=== PATIENT | female | born 1965 | race Caucasian/White ===

== ENCOUNTER 2018-09-10 11:33 | Day surgery (SDC) | payer BC ==
[~2018-09-10] VITALS: Ht 157.5 cm; Wt 85.1 kg
[~2018-09-10 11:33] MED LIST: ATOR10TA65 PO; FENO200 PO; LISI20TA; OMEP20CA9
[2018-09-10 13:00] VITALS: Ht 157.5 cm; Wt 85.1 kg
[2018-09-10 13:22] VITALS: BP 119/87; PULSE 70; RESP 20
--- NOTE | 2018-09-10 13:33 | PREAC ---
Date/Time of Note Date/Time of Note DATE: 09/10/18 TIME: 13:31 Anesthesia Eval and Record Evaluation Time Pre-Procedure Interview DATE: 09/10/18 TIME: 13:31 Age 53 Sex female NPO: 8 hrs Preoperative diagnosis Abdominal pain Planned procedure EGD Past Medical History Past Medical History: Includes Cardio: HTN, Dyslipidemia Endo: Diabetes GI: GERD, Morbid obesity Surgery & Anesthesia Issues No known issue Meds Anticoagulation: No Beta Carlos within 24 hr: No Reason Beta Carlos not given: Pt. not on B-Carlos Reported Medications Atorvastatin Calcium (Atorvastatin Calcium) 10 Mg Tablet, 10 MG PO QHS, #30 TAB 01/01/16 Fenofibrate* (Fenofibrate*) 200 Mg Cap, 200 MG PO DAILY, CAP 01/01/16 Omeprazole* (Prilosec*) 20 Mg Capsule. 08/19/09 Lisinopril* (Prinivil*) 20 Mg Tablet 08/19/09 Meds reviewed: Yes Allergies Coded Allergies: No Known Allergy (Verified Allergy, Mild, 08/19/09) Allergies Reviewed: Yes Labs/Studies Labs Reviewed: Reviewed by anesthesiologist test: Negative Studies: ECG Pre-procedure Exam Last vitals BP:112/56, P:77, Spo2:100%, T:98,9 Airway: Adequate mouth opening, Adequate thyromental dist Mallampati: Mallampati II Teeth: Normal Lung: Normal Heart: Normal ASA Physical Status ASA physical status: 3 Emergency: None Planned Anesthetic General/MAC: MAC Planned Pain Management Parenteral pain med Pre-operative Attestations Prior to commencing anesthesia and surgery, the patient was re-evaluated, there was verification of: *The patient's identity *The results of appropriate recent lab work and preoperative vital signs *The above evaluation not changing prior to induction *Anesthetic plan, risk benefits, alternative and complications discussed with patient/family; questions answered; patient/family understands, accepts and wishes to proceed. CHELE CAO MD Sep 10, 2018 13:33
[2018-09-10] MEDS ORDERED: PROPOFOL 20 ML ONE (13:41)
[2018-09-10] MEDS ORDERED: LIDOCAINE 2% (SDV) 5 ML INJ ONE (13:41)
--- NOTE | 2018-09-10 13:54 | PAC ---
Date/Time of Note Date/Time of Note DATE: 09/10/18 TIME: 13:54 Post-Anesthesia Notes Post-Anesthesia Note Activity: WNL Respiratory function: WNL Cardiovascular function: WNL Mental status: Baseline Pain reasonably controlled: Yes Hydration appropriate: Yes Nausea/Vomiting absent: Yes Comments BP:112/56, P:78, Spo2:100%, T:98,8 CHELE CAO MD Sep 10, 2018 13:54
[2018-09-10 14:19] VITALS: BP 129/76; PULSE 68; RESP 24
== END 2018-09-10 16:14 | disposition home or self-care (01) ==
LOC: GIL 11:33
PROVIDERS: ATTEND Internal Medicine Gastroenterology
DX: K21.9 Gastro-esophageal reflux disease without esophagitis (principal); K29.60 Other gastritis without bleeding; I10 Essential (primary) hypertension; E11.9 Type 2 diabetes mellitus without complications; E78.5 Hyperlipidemia, unspecified
CPT/HCPCS: 43239; 88305; Z7610

== ENCOUNTER 2018-11-10 13:57 | Emergency (ER) | payer BC ==
[~2018-11-10] VITALS: Ht 157.5 cm; Wt 87.0 kg
[~2018-11-10 13:57] MED LIST changes: +NAPR-985 PO
[2018-11-10 14:01] VITALS: Ht 157.5 cm; Wt 87.0 kg
== END 2018-11-10 15:36 | disposition home or self-care (01) ==
LOC: FTE 13:57
DX: M25.562 Pain in left knee (principal); I10 Essential (primary) hypertension
CPT/HCPCS: 73562; 93971; Z7502